=== PATIENT | female | born 1940 | race Caucasian/White ===

== ENCOUNTER 2019-02-19 12:16 | Outpatient (RCR) | payer MEDICARE, SELFPAY ==
[2018-12-14 13:18] LABS: INR 2.8; Prothrombin Time 29.1 Seconds (11.1-14.7)
[2019-01-15 13:35] LABS: INR 2.7; Prothrombin Time 28.2 Seconds (11.1-14.7)
[2019-02-19 12:50] LABS: INR 2.5; Prothrombin Time 26.7 Seconds (11.1-14.7)
== END 2019-03-14 23:59 | disposition home or self-care (01) ==
LOC: ANHLAB 12:16
PROVIDERS: PCP Nurse Practitioner; Visit Provider Internal Medicine Cardiovascular Disease
DX: I48.20 Chronic atrial fibrillation, unspecified (principal); Z95.3 Presence of xenogenic heart valve
CPT/HCPCS: 36415; 85610

== ENCOUNTER 2019-04-06 11:18 | Outpatient (RCR) | payer MEDICARE, SELFPAY ==
[2019-04-06 12:25] LABS: INR 2.1; Prothrombin Time 23.2 Seconds (11.1-14.7)
== END 2019-07-05 23:59 | disposition home or self-care (01) ==
LOC: ANHLAB 11:18
PROVIDERS: PCP Internal Medicine; Visit Provider Internal Medicine Cardiovascular Disease
DX: I48.20 Chronic atrial fibrillation, unspecified (principal); Z95.3 Presence of xenogenic heart valve
CPT/HCPCS: 36415; 85610

== ENCOUNTER 2020-05-13 04:26 | Emergency (ER) | payer MEDICARE, SELFPAY ==
[2020-05-13] VITALS (20 sets, daily range): BP systolic 124–142; BP diastolic 58–65; PULSE 70–90; RESP 11–23; TEMP 37.1; O2SAT 95–100
--- NOTE | ~2020-05-13 | XR_ITS ---
EXAMINATION: XR chest 1V portable DATE: 05/13/2020 05:28 INDICATION: Chest pain. TECHNIQUE: A single frontal view of the chest was obtained. COMPARISON: Chest 2 views 07/06/2017, CT abdomen and pelvis 10/07/2017 FINDINGS: Calcified right lung nodules are consistent with old granulomatous disease. There is mild a telectasis at left lung base. No pleural effusion or pneumothorax. The heart size is normal. There ar e changes of aortic, mitral, and tricuspid valve replacements. There is a left chest wall pacer with leads in the right atrium and right ventricle. IMPRESSION: 1. Mild atelectasis at left lung base. Reviewed, dictated and finalized at location A.
--- NOTE | 2020-05-13 04:35 | ECG_ITS ---
Measurements Intervals [place] Rate: 70 P: MO: 0 QRS: 101 QRSD: 162 T: -34 QT: 448 QTc: 484 Interpretive Statements ELECTRONIC VENTRICULAR PACEMAKER BASELINE ARTIFACT- II, III, AVR, AVL, AVF, V3-V6 NO FURTHER INTERPRETATION IS POSSIBLE ATYPICAL ECG Electronically Signed On 05-13-2020 6:51:43 CDT by Behzad Montano D.O.
--- NOTE | 2020-05-13 04:55 | ED.ARRPALP ---
HPI - Arrhythmia/Palpitations General Chief Complaint: Arrhythmia/Palpitations Stated Complaint: pacer continually firing - pt twitching cant walk Time Seen by Provider: 05/13/20 04:35 Source: EMS Mode of arrival: EMS Limitations: dementia History of Present Illness HPI narrative: Patient is an 79-year-old female sent here from the senior care for possible pacemaker firing off , described as patient twitching while walking according to EMS. Patient denies any complaints at this time. Patient denies any chest pain, shortness of breath, abdominal pain, nausea, vomiting or twitching. Related Data Home Medications Medication Instructions Recorded Confirmed cholecalciferol (vitamin D3) 125 5,000 unit PO DAILY 12/18/18 05/15/19 mcg (5,000 unit) capsule glucosamine 500 cap PO .qd cap 12/18/18 05/15/19 ca-jkvrovadt-ezatfclv comp 400 mg-D3 667 unit-C-Mn cap warfarin 4 mg tablet 4 mg PO DAILY 12/18/18 05/15/19 lactobacillus combination no.9 4 4,000 mmu cells PO DAILY 05/11/19 05/15/19 billion cell capsule minerals tablet PO 05/11/19 05/15/19 omega 9-ggs-ssl-fish oil 1,600 5 ml PO BID 05/11/19 05/15/19 mg-500 mg-800 mg/5 mL oral liquid epinephrine 0.3 mg/0.3 mL 0.3 mg IM ONCE PRN 05/24/19 injection, auto-injector ascorbic acid (vitamin C) 1,000 mg 1,000 mg PO BID tablet 06/11/19 tablet,extended release magnesium oxide 400 mg PO DAILY 06/11/19 psyllium seed (sugar) oral powder 2 tsp PO DAILY gm 06/11/19 iron, carbonyl 18 mg iron chewable 54 mg PO BID tablet 06/12/19 tablet Allergies Allergy/AdvReac Type Severity Reaction Status Date / Time digoxin Allergy Intermediate Hallucinati Verified 05/13/20 04:34 ng amiodarone Allergy Unknown Confusion Verified 05/13/20 04:34 donepezil Allergy Unknown confusion Verified 05/13/20 04:34 shellfish derived Allergy Unknown Unknown Verified 05/13/20 04:34 Sulfa (Sulfonamide Allergy Unknown Vomiting Verified 05/13/20 04:34 Antibiotics) Review of Systems Review of Systems: All systems reviewed & are unremarkable except as noted in HPI and below Constitutional: Constitutional: Denies body ache(s), Denies chills, Denies excessive sweating, Denies fatigue, Denies fever(s), Denies headache(s), Denies lethargy, Denies malaise, Denies weakness and Denies weight loss Eyes: Eyes: Denies blurry vision, Denies change in vision and Denies loss of vision ENT: Denies dizziness, Denies ear discharge, Denies headache(s), Denies lip swelling, Denies epistaxis, Denies nasal congestion, Denies neck pain, Denies throat swelling and Denies tongue swelling Cardiovascular: Cardiovascular: Denies chest pain, Denies chest pain at rest, Denies chest pain with activity, Denies diaphoresis, Denies rapid heart rate, Denies edema, Denies irregular heart rhythm, Denies lightheadedness, Denies palpitations, Denies dyspnea and Denies dyspnea on exertion Respiratory: Respiratory: Denies chest congestion, Denies cough, Denies hemoptysis, Denies dyspnea and Denies dyspnea on exertion Gastrointestinal: Gastrointestinal: Denies abdominal pain, Denies melena, Denies hematochezia, Denies diarrhea, Denies nausea, Denies vomiting and Denies hematemesis Musculoskeletal: Musculoskeletal: Denies abnormal gait, Denies deformity, Denies joint swelling, Denies limited range of motion, Denies neck pain and Denies numbness Neurologic: Denies Abnormal speech present, Denies abnormal gait, Denies dizziness, Denies headache(s), Denies focal weakness, Denies loss of vision, Denies numbness, Denies Other visual disturbances, Denies Sensory deficit (Neuro) and Denies weakness Psychiatric: Psychiatric: Denies depression, Denies auditory hallucinations, Denies homicidal ideation and Denies suicidal ideation Endocrine: Endocrine: Denies cold intolerance, Denies excessive sweating, Denies fatigue, Denies heat intolerance and Denies palpitations Hematologic/Lymphatic: Hematologic/Lymphatic: Denies easy bleeding and Den
[2020-05-13 05:21] LABS: Basophils Percent Auto 0.3 % (0.2-1.2); Eosinophils Absolute Auto 0.1 K/mm3 (0-0.3); Eosinophils Percent Auto 1.7 % (0-4.4); Hematocrit 39.3 % (37.0-47.0); Immature Granulocyte Absolute 0.02 K/mm3 (0.00-0.031); Immature Granulocyte Percent A 0.3 % (0-0.5); Immature Platelet Fraction Pct 1.7 % (0.9-11.2); Lymphocytes Absolute Auto 1.02 K/mm3 (0.9-3.2); Lymphocytes Percent Auto 17.5 % (18.3-44.2); Mean Corpuscular HGB Conc 33.1 g/dl (32-36); Mean Corpuscular Hemoglobin 30.9 pg (26-34); Mean Corpuscular Volume 93.3 fl (80-100); Mean Platelet Volume 9.4 fl (7.4-10.4); Monocytes Absolute Auto 0.5 K/mm3 (0.1-0.6); Monocytes Percent Auto 8.7 % (2.6-8.5); Neutrophils Absolute Auto 4.2 K/mm3 (1.3-6.7); Neutrophils Percent Auto 71.5 % (45.5-73.1); Platelet Count Result 165 k/mm3 (150-375); Red Blood Count 4.21 M/mm3 (4.2-5.4); Red Cell Distribution Width 13.2 % (11.5-14.5); White Blood Count 5.8 K/mm3 (4.5-10.0)
[2020-05-13 05:34] LABS: INR 2.2; Partial Thromboplastin Time 43.3 SECONDS (22.3-36.8); Prothrombin Time 24.6 Seconds (11.1-14.7)
[2020-05-13 05:36] LABS: Alanine Aminotransferase 13 U/L (4-35); Albumin Level 4.1 g/dL (3.5-5.1); Alkaline Phosphatase 45 U/L (38-126); Anion Gap 5 mmol/L (8-16); Aspartate Amino Transferase 38 U/L (14-36); Bilirubin,Total 0.8 mg/dL (0.2-1.3); Blood Urea Nitrogen 16 mg/dL (7-17); Calcium 9.1 mg/dL (8.4-10.2); Carbon Dioxide 29 mmol/L (22-30); Chloride 106 mmol/L (98-107); Estimated Glomerular Filt Rate > 60; Glucose 93 mg/dL (65-105); Potassium 4.4 mmol/L (3.4-5.0); Sodium 140 mmol/L (137-145)
[2020-05-13 05:48] LABS: Troponin I < 0.012 ng/mL (0.000-0.034)
--- NOTE | 2020-05-13 06:23 | PC.NURSE ---
Per [facility]P [facility] PT. does not need pacemaker interrogated.
--- NOTE | 2020-05-13 06:40 | PC.NURSE ---
Spoke with Pt. daughter. pt. daughter states Do not send her back by ambulance. I will get her a ride.
--- NOTE | 2020-05-13 07:07 | PC.NURSE ---
Pt. ujazvnes-re-eqx states they are on their way to [facility]. They will call when they arrive.
== END 2020-05-13 07:45 | disposition home or self-care (01) ==
PROVIDERS: Emergency Provider Emergency Medicine; PCP Family Medicine
DX: I48.91 Unspecified atrial fibrillation (principal); Z95.0 Presence of cardiac pacemaker; D64.9 Anemia, unspecified; F41.9 Anxiety disorder, unspecified; F03.90 Unspecified dementia, unspecified severity, without behavioral disturbance, psychotic disturbance, mood disturbance, and anxiety; E06.3 Autoimmune thyroiditis
CPT/HCPCS: 36415; 71045; 80053; 84484; 85025; 85055; 85610; 85730; 93005; 99284

== ENCOUNTER 2021-04-11 22:02 | Emergency (ER) | payer MEDICARE, SELFPAY ==
--- NOTE | ~2021-04-11 | CT_ITS ---
EXAMINATION: CT brain wo con DATE: 04/11/2021 23:14 INDICATION: Head injury. TECHNIQUE: Computed tomography (CT) of the head was performed without intravenous contrast. The mA wa s adjusted according to patient size. Iterative reconstruction technique was employed. The dose-lengt h product was 605.33 mGy-cm. COMPARISON: Head CT 01/18/2019 FINDINGS: There is diffuse brain volume loss. There are scattered areas of low attenuation in the cer ebral white matter. The ventricles are normal in size for the degree of brain volume loss. There is m ild mucosal thickening in the paranasal sinuses. There are likely changes of ocular lens replacement surgeries. The mastoid air cells are normal. There is a left posterior superior scalp hematoma. IMPRESSION: 1. Mild nonspecific cerebral white matter disease, which likely represents chronic small vessel ische alvaro disease. Reviewed, dictated and finalized at location A. SUPPLIES SALESPERSON IMPRESSION: 1. Mild nonspecific cerebral white matter disease, which likely represents heel cover softener michelle small vessel ischemic disease.
[2021-04-11 22:01] VITALS: BP 137/66; PULSE 79; RESP 15; TEMP 36.4; O2SAT 100
--- NOTE | 2021-04-11 22:58 | ED.GENADULT ---
HPI - General Adult General Chief complaint: Fall Stated complaint: fall with head hematoma Time Seen by Provider: 04/11/21 22:25 History of Present Illness HPI narrative: Patient is an 80-year-old female who presents ER status post fall. Patient fell backwards striking her head. Unknown loss of consciousness. Lives at [facility]. Has dementia and is oriented x0 at this time. She is awake and alert and will follow commands. Cannot give any history. Admits no reports of pain at this time. Related Data Home Medications Medication Instructions Recorded Confirmed cholecalciferol (vitamin D3) 125 5,000 unit PO DAILY 12/18/18 05/15/19 mcg (5,000 unit) capsule glucosamine 500 cap PO .qd cap 12/18/18 05/15/19 nn-nkftsntxc-odvtikhf comp 400 mg-D3 667 unit-C-Mn cap warfarin 4 mg tablet 4 mg PO DAILY 12/18/18 05/15/19 lactobacillus combination no.9 4 4,000 mmu cells PO DAILY 05/11/19 05/15/19 billion cell capsule minerals tablet PO 05/11/19 05/15/19 omega 0-vpy-quh-fish oil 1,600 5 ml PO BID 05/11/19 05/15/19 mg-500 mg-800 mg/5 mL oral liquid epinephrine 0.3 mg/0.3 mL 0.3 mg IM ONCE PRN 05/24/19 injection, auto-injector ascorbic acid (vitamin C) 1,000 mg 1,000 mg PO BID tablet 06/11/19 tablet,extended release magnesium oxide 400 mg PO DAILY 06/11/19 psyllium seed (sugar) oral powder 2 tsp PO DAILY gm 06/11/19 iron, carbonyl 18 mg iron chewable 54 mg PO BID tablet 06/12/19 tablet Allergies Allergy/AdvReac Type Severity Reaction Status Date / Time digoxin Allergy Intermediate Hallucinati Verified 04/11/21 22:15 ng amiodarone Allergy Unknown Confusion Verified 04/11/21 22:15 donepezil Allergy Unknown confusion Verified 04/11/21 22:15 shellfish derived Allergy Unknown Unknown Verified 04/11/21 22:15 Sulfa (Sulfonamide Allergy Unknown Vomiting Verified 04/11/21 22:15 Antibiotics) Review of Systems Review of Systems: ROS unobtainable: Yes unobtainable due to mental status PMFSH Past Medical History Medical History Anemia Anxiety Dementia Price's disease Surgical History Surgical History S/P cholecystectomy Status post aortic valve allograft Status post placement of cardiac pacemaker Family History Family History Mother Family history of multiple sclerosis Father Patient's father is , Onset Age: 58 Family history of alcoholism Social History Social History Smoking status: Never smoker Second hand tobacco smoke exposure: No Alcohol intake: never Gender identity (if verbalized by the patient): Female Exam Narrative: GENERAL: Well-appearing, well-nourished, and in no acute distress. HEAD: Normocephalic, hematoma left occipital region. EYES: PERRL and EOMI. old contusion around the left eye with yellowing. ENT: Nares clear, no rhinorrhea or epistaxis. Mucous membranes moist. NECK: Supple. No midline tenderness. CHEST: Clear to auscultation. No respiratory distress. HEART: Regular rate and rhythm. Normal peripheral pulses. ABDOMEN: Soft, nontender, nondistended. EXTREMITIES: Normal range of motion. No edema. SKIN: Warm, dry, no rash. NEURO: Alert and oriented x1. Course Course Emergency Course: Imaging unremarkable. Discharge. Vital Signs Vital signs: Vital Signs Temperature 97.6 F 04/11/21 22:01 Pulse Rate 79 04/11/21 22:01 Respiratory Rate 15 04/11/21 22:01 Blood Pressure 137/66 04/11/21 22:01 Pulse Oximetry 100 04/11/21 22:01 Temperature 97.6 F 04/11/21 22:01 Pulse Rate 70 04/11/21 23:23 Respiratory Rate 19 04/11/21 23:23 Blood Pressure 128/59 L 04/11/21 23:23 Pulse Oximetry 98 04/11/21 23:23 Medical Decision Making Vital Signs Vital Signs: Vital Signs Temperature 97.6
--- NOTE | 2021-04-11 23:01 | PC.NURSE ---
Pt to CT via stretcher at this time.
[2021-04-11 23:23] VITALS: BP 128/59; PULSE 70; RESP 19; O2SAT 98
[2021-04-12 00:43] VITALS: BP 142/81; PULSE 70; RESP 14
[2021-04-12 01:00] VITALS: BP 115/58; PULSE 70; RESP 20; O2SAT 98
[2021-04-12 03:09] VITALS: BP 122/60; PULSE 70
== END 2021-04-12 07:07 ==
PROVIDERS: Emergency Provider Emergency Medicine; PCP Family Medicine
DX: S00.03XA Contusion of scalp, initial encounter (principal); F03.90 Unspecified dementia, unspecified severity, without behavioral disturbance, psychotic disturbance, mood disturbance, and anxiety; Z86.2 Personal history of diseases of the blood and blood-forming organs and certain disorders involving the immune mechanism; E06.3 Autoimmune thyroiditis; F41.9 Anxiety disorder, unspecified; Z95.0 Presence of cardiac pacemaker; Z79.01 Long term (current) use of anticoagulants; W19.XXXA Unspecified fall, initial encounter
CPT/HCPCS: 70450; 99284

== ENCOUNTER 2021-08-15 09:58 | Inpatient (IN) | payer MEDICARE, SELFPAY ==
[2021-08-15] VITALS (35 sets, daily range): BP systolic 74–159; BP diastolic 30–107; PULSE 70–93; RESP 16–33; TEMP 36.4–36.6; O2SAT 95–100; BMI 22.4
--- NOTE | ~2021-08-15 | CT_ITS ---
EXAMINATION: CT LE LT wo con DATE: 08/15/2021 15:55 INDICATION: Large hematoma upper medial thigh TECHNIQUE: Computed tomography (CT) of the left thigh was performed without intravenous contrast. The dose-length product was 335.26 mGy-cm. Automated exposure control and iterative reconstruction techn ique were employed. COMPARISON: None FINDINGS: There is a large heterogeneous complex fluid collection in the left upper medial thigh begi nning below the hip involving the vastus medialis. The hematoma measures approximately 19.7 x 11.5 x 11.6 cm. Hematocrit level is noted. Small punctate focus of gas noted nondependent in the bladder, po ssibly from recent instrumentation. There is mild osteoarthritis of the left hip. No acute fracture o r traumatic malalignment. IMPRESSION: 1. Large complex fluid collection with hematocrit level involving the left upper medial thigh/vastus medialis muscle, consistent with hemorrhage. Reviewed, dictated and finalized at location A. IMPRESSION: 1. Large complex fluid collection with hematocrit level involving the left uppe r medial thigh/vastus medialis muscle, consistent with hemorrhage.
--- NOTE | ~2021-08-15 | CT_ITS ---
EXAMINATION: CT brain wo con DATE: 08/15/2021 10:50 INDICATION: Altered mental status. COVID positive. TECHNIQUE: Computed tomography (CT) of the head was performed without intravenous contrast. Sagittal and coronal reconstructions were performed. The mA was adjusted according to patient size. Iterative reconstruction technique was employed. The dose-length product was 605.33 mGy-cm. COMPARISON: head CT dated 04/11/21 FINDINGS: There is a new region of decreased attenuation centered in the right basal ganglia extending from the subinsular white matter across the posterior aspect of the lentiform nucleus and cephalad to the per iventricular right frontal jones radiata. There is some mass effect upon the overlying lateral wall of the body of the right lateral ventricle. This be consistent with edema in the setting of a relativ grace acute infarct. No acute intracranial hemorrhage or abnormal extra axial fluid collection. Symmetr ic prominence of the sulci and ventricles consistent with moderate age-appropriate diffuse cerebral v olume loss. No other masses/mass effect. There is mild scattered white matter hypoattenuation consist ent with chronic small vessel ischemic disease. Changes of bilateral intraocular lens replacement. T he orbits, paranasal sinuses and mastoid air cells are normal. IMPRESSION: 1. Relatively acute infarct centered at the right basal ganglia. Reviewed, dictated and finalized at location A.
--- NOTE | ~2021-08-15 | XR_ITS ---
EXAMINATION: XR chest 1V portable DATE: 08/15/2021 10:13 INDICATION: Altered mental status TECHNIQUE: frontal view of the chest was obtained. COMPARISON: Chest radiograph dated 05/13/2020 FINDINGS: Calcified nodule at the right lower lung zone consistent with old granulomatous disease. No focal air space opacities, pulmonary edema, pleural effusion or pneumothorax. The cardiomediastinal silhouette is normal. Venous sternotomy wires and multiple cardiac valve repairs, likely aortic, tricuspid and m itral. Dual lead pacemaker seen with leads projecting over the expected locations of the right atrium and right ventricular outflow tract. Right rotator cuff arthropathy. Oral contrast material at the s plenic flexure of the colon. IMPRESSION: 1. No acute cardiopulmonary disease. Reviewed, dictated and finalized at location A.
--- NOTE | 2021-08-15 10:05 | ECG_ITS ---
Measurements Intervals [place] Rate: 70 P: [place]: 0 QRS: 107 QRSD: 133 T: -18 QT: 440 QTc: 475 Interpretive Statements ELECTRONIC VENTRICULAR PACEMAKER BASELINE ARTIFACT- I, III, AVR, AVL, AVF, V1-V2 NO FURTHER INTERPRETATION IS POSSIBLE ATYPICAL ECG Electronically Signed On 08-15-2021 15:31:34 CDT by Behzad Montano D.O.
[2021-08-15 10:34] LABS: Basophils Percent Auto 0.1 % (0.2-1.2); Hemoglobin 9.6 g/dL (12.0-15.0); Immature Granulocyte Absolute 0.13 K/mm3 (0.00-0.031); Immature Granulocyte Percent A 0.6 % (0-0.5); Lymphocytes Absolute Auto 2.56 K/mm3 (0.9-3.2); Lymphocytes Percent Auto 12.8 % (18.3-44.2); Mean Corpuscular HGB Conc 33.1 g/dl (32-36); Mean Corpuscular Hemoglobin 30.5 pg (26-34); Mean Corpuscular Volume 92.1 fl (80-100); Mean Platelet Volume 9.9 fl (7.4-10.4); Monocytes Absolute Auto 1.5 K/mm3 (0.1-0.6); Monocytes Percent Auto 7.3 % (2.6-8.5); Neutrophils Absolute Auto 15.9 K/mm3 (1.3-6.7); Neutrophils Percent Auto 79.2 % (45.5-73.1); Platelet Count Result 279 k/mm3 (150-375); Red Blood Count 3.15 M/mm3 (4.2-5.4); Red Cell Distribution Width 14.3 % (11.5-14.5); White Blood Count 20.1 K/mm3 (4.5-10.0)
[2021-08-15 10:46] LABS: INR 3.2; Prothrombin Time 31.9 Seconds (11.1-14.7)
[2021-08-15 10:47] LABS: Partial Thromboplastin Time 47.8 SECONDS (22.3-36.8)
[2021-08-15 10:48] LABS: Alanine Aminotransferase 28 U/L (6-35); Albumin Level 3.8 g/dL (3.5-5.1); Alkaline Phosphatase 54 U/L (38-126); Anion Gap 11 mmol/L (8-16); Aspartate Amino Transferase 46 U/L (14-36); Bilirubin,Total 0.8 mg/dL (0.2-1.3); Blood Urea Nitrogen 36 mg/dL (7-17); Carbon Dioxide 20 mmol/L (22-30); Chloride 112 mmol/L (98-107); Estimated CRCL calculation 19 ml/min; Estimated Glomerular Filt Rate 27; Glucose 201 mg/dL (65-110); Potassium 4.6 mmol/L (3.4-5.0); Sodium 143 mmol/L (137-145)
--- NOTE | 2021-08-15 10:50 | PC.NURSE ---
Sumeet [phone]
[2021-08-15 11:10] LABS: SARS-CoV-2 RNA PCR Positive
[2021-08-15 11:10] LABS: Appearance Urine Slightly Cloudy (Clear); Bilirubin Urine 1+ (Negative); Color Urine Yellow (Yellow); Glucose Urine UA Negative (Negative); Ketones Urine Trace mg/dL (Negative); Leukocyte Esterase Ur 1+ LEU/UL (Negative); Nitrate Urine Negative (Negative); Protein Urine Trace mg/dL (Negative); Specific Grav Ur >= 1.030 (1.001-1.035)
[2021-08-15 11:18] LABS: Add Urine Microscopic? YES; Blood Urine Trace-Intact (Negative)
--- NOTE | 2021-08-15 11:21 | ED.AMS ---
HPI - Altered Mental Status General Chief Complaint: Altered Mental Status Stated Complaint: ? Time Seen by Provider: 08/15/21 10:01 History of Present Illness HPI narrative: 81-year-old brought in by ambulance from a rehab facility. Patient was brought in as the rehab facility which she just got out yesterday states that she seemed to be having altered mental status from when she initially got there. Unable get any reliable history from this patient she is nonverbal. The son is here is able to get a good he is from him. She had underlying history of dementia. 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 She was taken to [facility]. She was not a candidate thrombolytics as it was a wake-up stroke. She does have underlying history of valvular heart disease and has been on Coumadin for years. She is also noted to detention to be positive for COVID. Related Data Home Medications Medication Instructions Recorded Confirmed cholecalciferol (vitamin D3) 125 5,000 unit PO DAILY 12/18/18 05/15/19 mcg (5,000 unit) capsule glucosamine 500 cap PO .qd 12/18/18 05/15/19 aa-nfptsnawk-xvpuklgw comp 400 mg-D3 667 unit-C-Mn cap warfarin 4 mg tablet 4 mg PO DAILY 12/18/18 05/15/19 lactobacillus combination no.9 4 4,000 mmu cells PO DAILY 05/11/19 05/15/19 billion cell capsule (Adult 50 Plus Probiotic) minerals tablet PO 05/11/19 05/15/19 omega 6-mlp-mjj-fish oil 1,600 5 ml PO BID 05/11/19 05/15/19 mg-500 mg-800 mg/5 mL oral liquid (Fish Oil) epinephrine 0.3 mg/0.3 mL 0.3 mg IM ONCE PRN anaphylaxis 05/24/19 injection, auto-injector ascorbic acid (vitamin C) 1,000 mg 1,000 mg PO BID 06/11/19 tablet,extended release magnesium oxide 400 mg PO DAILY 06/11/19 psyllium seed (sugar) oral powder 2 tsp PO DAILY 06/11/19 (Metamucil (sugar) oral powder) iron, carbonyl 18 mg iron chewable 54 mg PO BID 06/12/19 tablet (Ferretts Carbonyl Iron) Allergies Allergy/AdvReac Type Severity Reaction Status Date / Time digoxin Allergy Intermediate Hallucinati Verified 08/15/21 10:14 ng amiodarone Allergy Unknown Confusion Verified 08/15/21 10:14 donepezil Allergy Unknown confusion Verified 08/15/21 10:14 shellfish derived Allergy Unknown Unknown Verified 08/15/21 10:14 Sulfa (Sulfonamide Allergy Unknown Vomiting Verified 08/15/21 10:14 Antibiotics) Review of Systems Review of Systems: ROS unobtainable: Yes unobtainable due to mental status PMFSH Past Medical History Medical History Anemia Anxiety COVID CVA (cerebral vascular accident) Dementia Price's disease Valvular heart disease Surgical History Surgical History S/P cholecystectomy Status post aortic valve allograft Status post placement of cardiac pacemaker Family History Family History Mother Family history of multiple sclerosis Father Patient's father is , Onset Age: 58 Family history of alcoholism Social History Social History Smoking status: Never smoker Second hand tobacco smoke exposure: No Alcohol intake: never Gender identity (if verbalized by the patient): Female Exam Narrative: APPEARANCE: Patient is ill-appearing. She is nonverbal. Head normocephalic and atraumatic. EYES: PERRLA/EOMI, conjunctivae very clear. Sclera is very pale NOSE: Normal with no drainage EARS:TMS clear Bernabe Boo, with good light reflex. THROAT: Pharynx clear, no exudate. NECK: Supple. No adenopathy, no masses. RESPIRATORY: Airway patent, respirations nonlabored. Clear to auscultation bilaterally, no rales, rhonchi, wheezing. CARDIOVASCULAR: Regular rate and rhythm without rubs, or gallops. ABDOMINAL: Soft, nontender, nondistended, no hepatosplenomegaly Musculoskeletal: Note
[2021-08-15 11:22] LABS: Hyaline Casts Urine 30-49 /lpf; Mucus Urine Rare /lpf; Squamous Epithelial Cell Urine Many /hpf (Few); WBC Urine 21-30 /hpf
[2021-08-15] MEDS: SODIUM CHLORIDE 0.9% IV 1,000 ML 999 ML IV CONT (12:13)
--- NOTE | 2021-08-15 12:51 | PC.NURSE ---
Contacted phlebotomy at 1200. Attempted to draw blood from patient multiple times but was unsuccessful.
[2021-08-15 13:30] LABS: CRP 8.9 mg/dL (<1.0)
--- NOTE | 2021-08-15 14:25 | PC.NURSE ---
donovan building construction supervisor, called and asked to draw ED 14 d/t pt being difficult stick.
--- NOTE | 2021-08-15 14:44 | PC.NURSE ---
spoke with patients granddaughter over the phone who was upset and accused this rn of being a rude bitch when this rn told family member that this rn could not provide lab results over the phone. also began yelling at this rm and stating that this rm needed to check your attitude when this rn informed family member that covid positive patient were not allowed to have visitors.
[2021-08-15 15:01] LABS: Lactic Acid Reflex 2.3 mmol/L (0.7-2.0)
--- NOTE | 2021-08-15 15:30 | PM.IMHP ---
H&P: HPI History of Present Illness Date/Time: 08/15/21 15:30 Chief Complaint: Altered mental status. Narrative: This is an 81-year-old female with history of recent stroke, rheumatic heart disease status post allographic mitral and aortic valve replacements, atrial fibrillation, chronic anticoagulation, and other comorbidities who presented to the emergency department via EMS from a local rehab facility for evaluation of altered mental status. She is not able to provide any meaningful history and as such all of the following is obtained via a review of her electronic medical records as well as discussions with her son Sumeet via phone. She was recently hospitalized at [facility] with a stroke and was sent to a local rehab facility just yesterday. Today staff at the rehab facility thought she seemed to be less responsive and they called 911. On EMS arrival she had a large hematoma on the left inner thigh but snf staff were not able to provide any history nor were they able to say whether not it was present yesterday when the patient got to their facility. They do note that she tested positive for COVID 19 on 08/12/2021 and chest x-ray today showed no acute cardiopulmonary disease. Brain CT showed a relatively acute appearing infarct in the right basal ganglia which is presumed to be why she was recently hospitalized. CT of the lower extremity showed a large complex fluid collection involving the left upper medial thigh and vastus medialis muscle consistent with hemorrhage. I was called to admit the patient in this setting and due to her recent hospitalization at [facility] I suggested that she be sent back there however family members did not wish for her to be transferred as they are going to be pursuing palliative care instead. At the time my evaluation the patient moans when examined and she offers no history or complaints. Review of Systems Review of Systems: A review of systems is unable to be obtained given her clinical condition as detailed above. [facility] Past Medical History Medical History (Updated 08/16/21 @ 00:02 by Flaquita Augustine PA-C) Anemia Anxiety Atrial fibrillation Cerebral hemorrhage Cerebrovascular accident Chronic anticoagulation Dementia Gastroesophageal reflux disease Price's disease History of cardiac pacemaker Hypercholesterolemia Rheumatic heart disease Status post aortic and mitral valve replacement with tricuspid valve repair. Surgical History Surgical History (Updated 08/15/21 @ 23:45 by Flaquita Augustine PA-C) History of allograft aortic valve replacement History of bilateral carpal tunnel release History of cholecystectomy History of colonoscopy with polypectomy History of hysterectomy History of tricuspid valve repair Status post mitral valve allograft Family History Family History (Updated 08/15/21 @ 23:46 by Flaquita Augustine PA-C) Mother Family history of multiple sclerosis Father Patient's father is , Onset Age: 58 Family history of alcoholism Sibling Hodgkin lymphoma Social History Social History (Updated 08/15/21 @ 23:47 by Flaquita Augustine PA-C) Social History: Surrogate decision maker: Sumeet Bains, son. Code status: Do not resuscitate. Smoking status: Never smoker Second hand tobacco smoke exposure: No Alcohol intake: never Substance use: never Spiritual care concerns: No Meds Home Medications and Allergies Home Medications Medication Instructions Recorded Confirmed Type cholecalciferol (vitamin D3) 125 5,000 unit PO DAILY 12/18/18 08/15/21 History mcg (5,000 unit) capsule glucosamine 500 1 cap PO .qd 12/18/18 08/15/21 History je-iiqemswid-uhyvpwdk comp 400 mg-D3 667 unit-C-Mn cap warfarin 4 mg tablet 4 mg PO QPM 12/18/18 08/15/21 History ascorbic acid (vitamin C) 1,000 mg 1,000 mg PO BID 06/11/19 08/15/21 History tablet,extended release magnesium oxide 400 mg PO DAILY 06/11/19
[2021-08-15 15:31] LABS: Troponin I 0.143 ng/mL (0.000-0.034)
[2021-08-15 17:47] LABS: Reflex Lactic Acid Yes or No Add Lactic
[2021-08-15 18:20] LABS: Lactic Acid 2.5 mmol/L (0.7-2.0)
[2021-08-15 18:36] LABS: Troponin I 0.159 ng/mL (0.000-0.034)
--- NOTE | 2021-08-15 18:58 | ADMGEN ---
This patient, Parisa Bains, was admitted to [facility] Surg Room 329-01 at 1630. Patient/family oriented to hospital policies and general routines including ID bracelet, bed and alarms, visiting hours, pain management, procedures, bathroom and other care routines, personal items, smoking policy, room service/diet, and visiting hours. Information on how to activate the Rapid Response Team has been discussed. Patient/Family are encouraged to report perceived risks to care and to ask questions if they do not understand what they are told or what they should do.
[2021-08-15 21:44] LABS: Hematocrit 22.2 % (37.0-47.0); Hemoglobin 7.3 g/dL (12.0-15.0)
[2021-08-15 21:53] LABS: Anion Gap 5 mmol/L (8-16); Blood Urea Nitrogen 40 mg/dL (7-17); Calcium 8.2 mg/dL (8.4-10.2); Carbon Dioxide 22 mmol/L (22-30); Chloride 116 mmol/L (98-107); Estimated CRCL calculation 23 ml/min; Estimated Glomerular Filt Rate 33; Glucose 168 mg/dL (65-110); Magnesium 2.4 mg/dL (1.6-2.3); Sodium 143 mmol/L (137-145)
[2021-08-16] VITALS (12 sets, daily range): BP systolic 101–146; BP diastolic 39–91; PULSE 69–86; RESP 12–21; TEMP 36.1–37.2; O2SAT 96–100
[2021-08-16 07:27] LABS: Hematocrit 25.4 % (37.0-47.0); Hemoglobin 8.6 g/dL (12.0-15.0); Mean Corpuscular HGB Conc 33.9 g/dl (32-36); Mean Corpuscular Hemoglobin 31.2 pg (26-34); Platelet Count Result 221 k/mm3 (150-375); Red Blood Count 2.76 M/mm3 (4.2-5.4); White Blood Count 23.2 K/mm3 (4.5-10.0)
[2021-08-16 07:41] LABS: Anion Gap 7 mmol/L (8-16); Blood Urea Nitrogen 45 mg/dL (7-17); Calcium 8.2 mg/dL (8.4-10.2); Carbon Dioxide 20 mmol/L (22-30); Chloride 118 mmol/L (98-107); Estimated CRCL calculation 24 ml/min; Estimated Glomerular Filt Rate 36; Glucose 158 mg/dL (65-110); Sodium 145 mmol/L (137-145)
[2021-08-16 07:42] LABS: INR 4.5; Partial Thromboplastin Time 44.1 SECONDS (22.3-36.8); Prothrombin Time 41.5 Seconds (11.1-14.7)
[2021-08-16] MEDS: DORZOLAMIDE HCL 2% OPHTH DROPS 1 DROP EACH EYE ×2 (08:49→17:20)
--- NOTE | 2021-08-16 13:32 | PM.IMPN ---
Progress Note: A&P Assessment and Plan (1) Altered mental status: Code(s): R41.82 - Altered mental status, unspecified Status: Acute Assessment and Plan: Likely related to her CVA (2) Hematoma of left thigh: Code(s): S70.12XA - Contusion of left thigh, initial encounter Status: Acute Assessment and Plan: FFP has been given. INR still elevated. Will give vitamin K. discussion with family about hospice. Patient is hospice appropriate family is leaning towards hospice. Family well make that decision today. (3) History of recent stroke: Code(s): Z86.73 - Personal history of transient ischemic attack (TIA), and cerebral infarction without residual deficits Status: Acute Assessment and Plan: As detailed above. (4) Acute kidney injury: Code(s): N17.9 - Acute kidney failure, unspecified Status: Acute Assessment and Plan: She does appear dry on exam and will be cautiously hydrated. Avoid nephrotoxic agents. Monitor I/O. (5) Elevated troponin: Code(s): R77.8 - Other specified abnormalities of plasma proteins Status: Acute Assessment and Plan: monitor (6) COVID-19: Code(s): U07.1 - COVID-19 Status: Acute Assessment and Plan: Chest x-ray is unremarkable and she has no oxygen requirement. Thus no indication for dexamethasone or remdesivir. (7) Chronic anticoagulation: Code(s): Z79.01 - termite control service representative (current) use of anticoagulants Status: Acute Assessment and Plan: vitamin K and FFP. (8) Acute blood loss anemia: Code(s): D62 - Acute posthemorrhagic anemia Status: Acute Assessment and Plan: Secondary to bleeding into the thigh no unfortunately it is unclear as to why she is having this bleed. No reports of trauma though rehab facility could not provide much history, unfortunately. Trend H&H and transfuse if indicated. Subjective Date/time seen: 08/16/21 13:32 patient is not responsive. Exam Narrative: General: Ill appearing female supine in bed. Moans occasionally but does not answer questions. Weight: 59.3 kg. BMI: 22.4. HEENT: Pupils are reactive. Conjunctivae anicteric. Tacky mucous membranes. Oropharynx not visualized. Neck: Supple. No obvious bruits or lymphadenopathy. Small bruise on the left neck base. Respiratory: Respirations are nonlabored. Lung sounds are diminished due to poor effort. Cardiovascular: Regular rate and rhythm with S1-S2. Gastrointestinal: Abdomen is soft, nontender, and nondistended with positive bowel sounds. Skin: Warm and dry. Generalized pallor. Extremities: No cyanosis or clubbing. Large hematoma of the left upper medial thigh extending to the posterior thigh, spares the groin. There is a small area of skin in the middle of the hematoma with no drainage or fluctuance. Radial and pedal pulses intact. Neurological: Alert to name only. Cranial nerves 2-12 are grossly intact. She moves upper and lower extremities but looks weaker on the left. She does not follow commands. Psychiatric: Confused. Objective Data Vital Signs Vital Signs: Vital Signs - 24 hr 08/15/21 13:45 08/15/21 13:46 08/15/21 14:00 Temperature Pulse Rate 75 70 70 Respiratory Rate 25 H 16 19 Blood Pressure 105/62 Pulse Oximetry Oxygen Delivery 08/15/21 14:01 08/15/21 14:15 08/15/21 14:16 Temperature Pulse Rate 70 70 70 Respiratory Rate 33 H 28 H 23 H Blood Pressure 110/81 99/56 L Pulse Oximetry Oxygen Delivery 08/15/21 14:30 08/15/21 14:32 08/15/21 14:33 Temperature Pulse Rate 71 77 70 Respiratory Rate 16 26 H 25 H Blood Pressure 139/54 L Pulse Oximetry Oxygen Delivery 08/15/21 15:53 08/15/21 16:00 08/15/21 16:15 Temperature Pulse Rate 77 70 70 Respiratory Rate 23 H 21 H 29 H Blood Pressure Pulse Oximetry 100 100 98 Oxygen Delivery 08/15/21 16:16
[2021-08-16] MEDS: PHYTONADIONE INJ 10 MG/ML AMP 5 MG IM (16:05)
[2021-08-17 04:18] VITALS: BP 124/35; PULSE 55; RESP 12; TEMP 37.1; O2SAT 99
[2021-08-17 06:00] VITALS: BP 101/52; PULSE 70; RESP 16; TEMP 36.2; O2SAT 98
[2021-08-17 08:00] VITALS: O2SAT 96
[2021-08-17] MEDS: DORZOLAMIDE HCL 2% OPHTH DROPS 1 DROP EACH EYE (08:19)
--- NOTE | 2021-08-17 11:46 | PM.DS ---
DS: Admitting Diagnosis Discharge Date August 17, 2021 Admitting Diagnosis large left thigh hematoma, recent CVA, failure thrive DS: Discharge Diagnosis Discharge Diagnosis (1) Altered mental status: Code(s): R41.82 - Altered mental status, unspecified Status: Acute (2) Hematoma of left thigh: Code(s): S70.12XA - Contusion of left thigh, initial encounter Status: Acute (3) History of recent stroke: Code(s): Z86.73 - Personal history of transient ischemic attack (TIA), and cerebral infarction without residual deficits Status: Acute (4) Acute kidney injury: Code(s): N17.9 - Acute kidney failure, unspecified Status: Acute (5) Elevated troponin: Code(s): R77.8 - Other specified abnormalities of plasma proteins Status: Acute (6) COVID-19: Code(s): U07.1 - COVID-19 Status: Acute (7) Chronic anticoagulation: Code(s): Z79.01 - shelter (current) use of anticoagulants Status: Acute (8) Acute blood loss anemia: Code(s): D62 - Acute posthemorrhagic anemia Status: Acute DS: Summary Hospital Course Hospital Course: patient was admitted after being discharged from [facility] for a severe stroke. She apparently was discharged to a rehab facility continue and stay there for 24 hr. They noticed a large hematoma and swelling in her left thigh. She was transferred here evaluation did show a large hematoma. Lengthy discussion with the family over the phone given patient's worsening condition over the last couple weeks and worsening ability to maintain any significant for functional capacity after stroke. Decision was to make the patient hospice. Patient be discharged home hospice. Time Spent with Patient Time attestation: Total time spent providing and/or coordinating discharge services: Exam Narrative: General: not alert Psych: unable to assess Eyes: PERRLA Neck: Trachea midline, no new lesions Skin: no changes Lungs: CTA Cardiac: Normal S1,S2, no MGR ABD: soft, nd, nt, nbs Ext: no new lesions, no cce Vasc: Pulses intact DS: Data Data Completed and Pending Labs on day of discharge: Preliminary micro results at discharge 08/15/21 14:41 Blood Culture - Preliminary Blood 08/15/21 14:40 Blood Culture - Preliminary Blood Discharge Plan Discharge Attending physician on discharge: [facility]azaarging Clinician: [facility] Patient Disposition: Hospice - Home Activity: no preference Diet: as tolerated Patient Instructions: Hematoma (ED), COVID-19 (Coronavirus Disease 2019) (GEN) Stand Alone Forms: General Discharge Information Discharge Medications: Discontinued warfarin 4 mg tablet 4 mg PO QPM cholecalciferol (vitamin D3) 5,000 unit capsule 5,000 unit PO DAILY uacs-hlndbl-mvqqfwmp-[id number]-C-Mn 500-400-667 mg-mg-unit capsule 1 cap PO .qd atorvastatin 80 mg Tablet 80 mg PO HS polyethylene glycol 3350 17 gram Powder In Packet 17 g PO DAILY acetaminophen 500 mg Tablet 500 - 1,000 mg PO Q6H PRN (Reason: Pain) ferrous sulfate 325 mg (65 mg iron) Tablet 325 mg PO DAILY divalproex 125 mg tablet,delayed release (DR/EC) 1 tablet PO DAILY L.acidoph,saliva-B.bif-S.therm [Acidophilus Probiotic Blend] 175 mg Capsule 1 cap PO BID triamcinolone acetonide [Kenalog] 0.1 % Cream 1 applic TOPICAL BID Rx Instructions: apply to affected rash area on face lorazepam 0.5 mg Tablet 0.5 mg PO BID PRN (Reason: Anxiety or agitation) buspirone [BuSpar] 10 mg Tablet 10 mg PO BID Multivitamin 50 Plus Tablet 1 tablet DAILY Fish Oil 1,000 mg Capsule 1 cap BID magnesium oxide 400 mg magnesium tablet 400 mg PO DAILY ascorbic acid (vitamin C) 1,000 mg tablet extended release 1,000 mg PO BID Rx Instructions: Take 1 tablet in the morning and 1 tablet in t
== END 2021-08-17 15:35 | disposition hospice, home (50) | DRG 604 ==
LOC: ANHED 17:04 → ANH3MEDSUR 17:41
PROVIDERS: Physician Assistant; Admitting Provider Internal Medicine; Emergency Provider Emergency Medicine; PCP Family Medicine; Visit Provider Chiropractor
DX: S70.12XA Contusion of left thigh, initial encounter (principal); U07.1 COVID-19; D62 Acute posthemorrhagic anemia; N17.9 Acute kidney failure, unspecified; R41.82 Altered mental status, unspecified; I69.398 Other sequelae of cerebral infarction; F03.90 Unspecified dementia, unspecified severity, without behavioral disturbance, psychotic disturbance, mood disturbance, and anxiety; F41.9 Anxiety disorder, unspecified; E06.3 Autoimmune thyroiditis; I48.91 Unspecified atrial fibrillation; K21.9 Gastro-esophageal reflux disease without esophagitis; D64.9 Anemia, unspecified; Z66 Do not resuscitate; R62.7 Adult failure to thrive; Z79.01 Long term (current) use of anticoagulants; Z90.49 Acquired absence of other specified parts of digestive tract; Z95.0 Presence of cardiac pacemaker; Z68.23 Body mass index [BMI] 23.0-23.9, adult; Z95.4 Presence of other heart-valve replacement
CPT/HCPCS: 36415; 36430; 70450; 71045; 73700; 80048; 80053; 81001; 83605; 83735; 84484; 85014; 85018; 85025; 85027; 85610; 85730; 86140; 86850; 86900; 86901; 86920; 87040; 87086; 93005; 96365; 96372; 99285; A9270; C9803; G0378; J0696; J3430; J7030; P9016; P9017; U0003; U0005